=== PATIENT | male | born 1950 ===

== ENCOUNTER → 2017-10-26 | Day surgery (SDC) | payer OTHER ==
[~2017-10-26] MED LIST: ATROPINE SULFATE 1 MG/10 ML SYR ONE; BACITRACIN IRRIGATION/NS 50,000 UNITS/1,000 ML BTL IRR ONE; BUPIVACAINE 0.5% 30 ML SDV ONE; DIAZEPAM 5 MG TAB PO ONE; LIDO/EPI 1% **for epidural** 30 ML SDV ONE; LIDOCAINE 1% 300 MG/30 ML SDV ONE; MIDAZOLAM 2 MG/2 ML VIAL ONE; NS 1,000 ML IV ONE; VANCOMYCIN 1 GM in NS 250 ML IV ONE; VANCOMYCIN PHARMACY TO DOSE MISC SCH; diphenhydrAMINE 25 MG CAP PO ONE; fentaNYL 100 MCG/2 ML INJ ONE
--- NOTE | 2017-10-26 09:51 | CPEKG ---
Heart Rate: 65 RR Interval: 923 P-R Interval: 156 QRSD Interval: 124 QT Interval: 452 QTC Interval: 470 P [place]tz: 0 QRS [place]: 131 T Wave [place]: 65 EKG Severity - ABNORMAL ECG - EKG Impression: VENTRICULAR-PACED RHYTHM Electronically Signed By: Cornelio Garcia 26-Oct-2017 10:41:02
[2017-10-26 10:04] LABS: PLATELET COUNT 138 10^3/uL (150-400)
[2017-10-26 10:12] LABS: INR 1.22 (0.83-1.16); PROTIME(PATIENT) 15.6 SEC (12.0-15.0)
--- NOTE | 2017-10-26 10:53 | PDHPUP ---
History & Physical Update H&P update statement: This history and physical update is based on an assessment of the patient which was completed after admission or registration (within 24 hours), but prior to the surgery/procedure. H&P update: H&P reviewed & patient examined, no change in patient's condition since H&P completed
--- NOTE | 2017-10-26 10:54 | PDPROPOC ---
Sedation Plan of Care Sedation Plan of Care: vital signs stable, mental status noted, patient educated of risks, benefits, alternatives, patient can tolerate sedation ASA Classification: ASA 2 Planned drugs: fentanyl, midazolam Mallampati Reference Image: Patient passed 3-3-2 rule?: Yes
--- NOTE | 2017-10-26 13:04 | CPIP ---
[f rep st] INVASIVE CARDIAC PROCEDURE DATE OF PROCEDURE: 10/26/2017 INDICATION: Mr. Omer is 67 years old with a history of complete heart block. He had a dual-alexandra mber pacemaker placed June 03, 2007. His current device is at elective replacement indicators. T he device as switched to VVI pacing. 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 PROCEDURE: 1. Placement of a temporary transvenous pacemaker given the fact that the patient is pacemaker depen dent. 2. Implantation of a new pacemaker generator. TECHNIQUE: Following informed consent and the patient in the fasting state and after the administrat ion of vancomycin, the patient was brought to the cardiac catheterization laboratory. Both the right groin and left chest were prepped and draped in the usual sterile fashion. 2% lidocaine was infiltr ated in the skin overlying the femoral vein. Using the modified Seldinger technique, a 6-Telugu latham th was placed and a balloon tipped pacing catheter was positioned under fluoroscopy in the right vent ricular apex. Excellent sensing and capture were noted. The wire was then secured in place with Teg aderm. The left chest was then prepped and draped in the usual sterile fashion. 2% lidocaine was in filtrated into the skin overlying the existing device. A 10 blade was then used to make a 4 cm incis ion. This incision was then opened further using Metzenbaum scissors. The pacemaker capsule was leticia ntified, was opened sharply. The device was delivered from the field. Both leads were then disconne cted from the pacemaker and individually tested with excellent capture and sensing. The pocket was i rrigated with antibiotic-containing solution. The new device was brought to the field. Both leads we re identified by a serial number and affixed to the header according to greens or grounds superintendent guidelines. The device and the redundant portions of all leads were then placed back in the pocket. The pocket was then closed in 3 layers using interrupted suture with 2-0 and 3-0 Vicryl and finally 3-0 S tratafix for the skin. Steri-Strips and a dry dressing were applied. The temporary pacemaker was then withdrawn under fluoroscopy. The sheath was pulled. Manual pressur e was held. COMPLICATIONS: None. DEVICE INFORMATION: The newly implanted device is a Miyaobabei IPG W1 DR02, Iram XT DR MRI compatibl e device. Model number is W1 DR01, serial number [id number]. Existing leads were implanted June 03, 2007. Right atrial lead Medtronic 4076, 52 cm lead, serial number [id number]. Ventricular lead i s a Medtronic 4076, 58 cm lead, serial number [id number]. In the atrium, capture is 0.5 V, 0.5 connie seconds. Lead impedance of 429 ohms, sensed P waves of 5.4 mV. In the right ventricle, capture is 0. 5 V, 0.5 milliseconds. The impedance is 423 ohms and no sensed R waves. DISPOSITION: The patient be transferred to the [facility]. He will be recovered there and discharged home later today. /[id number]/MODL
--- NOTE | 2017-10-26 13:20 | CPEKG ---
Heart Rate: 60 RR Interval: 1000 P-R Interval: 164 QRSD Interval: 130 QT Interval: 444 QTC Interval: 444 P [place]: 38 QRS [place]: 116 T Wave [place]: 73 EKG Severity - ABNORMAL ECG - EKG Impression: ATRIAL-VENTRICULAR DUAL-PACED RHYTHM EKG Impression: ATRIOVENTRICULAR PACING HAS REPLACED VENTRICULAR ONLY PACING ON THE PRIOR ECG Electronically Signed By: Cornelio Garcia 26-Oct-2017 22:31:49
== END | disposition home or self-care (01) ==
LOC: FCATH 09:22
PROVIDERS: ATTEND Internal Medicine Cardiovascular Disease
DX: Z45.010 Encounter for checking and testing of cardiac pacemaker pulse generator [battery] (principal); I44.2 Atrioventricular block, complete; I48.0 Paroxysmal atrial fibrillation; R53.83 Other fatigue; I10 Essential (primary) hypertension; Z87.891 Personal history of nicotine dependence; Z88.0 Allergy status to penicillin
CPT/HCPCS: C1785; J0461; J2250; J3010; J3370